=== PATIENT | female | born 2000 ===

== ENCOUNTER → 2023-02-09 23:59 | Outpatient (BNV) | payer OTHER, SELFPAY ==
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
== END ==
PROVIDERS: PCP Nurse Practitioner Family; Visit Provider Nurse Practitioner Family
DX: Z30.09 Encounter for other general counseling and advice on contraception (principal); Z87.898 Personal history of other specified conditions; Z78.9 Other specified health status; Z28.9 Immunization not carried out for unspecified reason; Z28.311 Partially vaccinated for COVID-19
CPT/HCPCS: 99204

== ENCOUNTER → 2023-06-03 10:43 | Outpatient (BNV) | payer OTHER, SELFPAY ==
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
== END ==
PROVIDERS: PCP Nurse Practitioner Family; Visit Provider Nurse Practitioner Family
DX: R52 Pain, unspecified (principal); J02.9 Acute pharyngitis, unspecified; Z59.01 Sheltered homelessness
CPT/HCPCS: 99213